=== PATIENT | female | born 1965 | race Caucasian/White ===

== ENCOUNTER 2016-10-09 09:04 | Emergency (ER) | payer MEDICARE | END 2016-10-09 09:50 | disposition home or self-care (01) | LOC: ER 09:04 | DX: L91.8 Other hypertrophic disorders of the skin (principal); Z86.711 Personal history of pulmonary embolism; I10 Essential (primary) hypertension; Z98.51 Tubal ligation status; Z88.1 Allergy status to other antibiotic agents; Z88.2 Allergy status to sulfonamides; Z79.899 Other long term (current) drug therapy; Z79.02 Long term (current) use of antithrombotics/antiplatelets; Z79.82 Long term (current) use of aspirin | CPT/HCPCS: 99282 ==

== ENCOUNTER 2016-10-18 14:45 | Emergency (ER) | payer MEDICARE ==
[2016-10-18 15:30] LABS: BASO % 0.7 % (0.1-1.2); EOS # 0.1 10_X3_uL (0.0-0.4); EOS % 2.3 % (0.7-5.8); GRAN # 3.9 10_X3_uL (1.6-6.1); GRAN % 65.5 % (34.0-71.1); HEMOGLOBIN 12.9 g/dL (11.2-15.7); LYMPH # 1.5 10_X3_uL (1.2-3.7); LYMPH % 24.9 % (19.3-51.7); MEAN CORPUSCULAR HEMOGLOBIN 32.5 pg (27.0-33.0); MEAN CORPUSCULAR HGB CONC 33.1 g/dL (32.0-36.0); MEAN CORPUSCULAR VOLUME 98.2 fL (79-95); MEAN PLATELET VOLUME 11.1 fl (7.5-11.5); MONO # 0.4 10_X3_uL (0.2-0.9); MONO % 6.6 % (4.7-12.5); PLATELET COUNT 206 x10_3/uL (182-369); RED BLOOD COUNT 3.97 x10_6/uL (3.9-5.2); RED CELL DISTRIBUTION WIDTH 13.4 % (11.7-14.4)
[2016-10-18 15:46] LABS: ALBUMIN 4.6 gm/dL (3.4-5.0); ALKALINE PHOSPHATASE 111 U/L (50-136); ALT/SGPT 23 U/L (3.5-33.9); AST/SGOT 18 U/L (7.04-26.96); BILIRUBIN,TOTAL 0.66 mg/dL (0.0-1.0); BLOOD UREA NITROGEN 11 mg/dL (7-18); CALCIUM 9.5 mg/dL (8.7-10.7); CARBON DIOXIDE 28 mmol/L (21-32); CREATINE KINASE 103 U/L (21-215); CREATININE 0.7 mg/dL (0.6-1.3); GLUCOSE,RANDOM 98 mg/dL (70-99); POTASSIUM 3.6 mmol/L (3.5-5.1); SODIUM 142 mmol/L (136-145); TOTAL PROTEIN 7.3 gm/dL (6.4-8.2)
== END 2016-10-18 16:00 | disposition home or self-care (01) ==
LOC: ER 14:45
PROVIDERS: Internal Medicine
DX: R11.2 Nausea with vomiting, unspecified (principal); I25.10 Atherosclerotic heart disease of native coronary artery without angina pectoris; Z95.1 Presence of aortocoronary bypass graft; Z79.82 Long term (current) use of aspirin; Z79.899 Other long term (current) drug therapy; Z79.02 Long term (current) use of antithrombotics/antiplatelets; Z88.2 Allergy status to sulfonamides; Z88.1 Allergy status to other antibiotic agents
CPT/HCPCS: 36415; 80053; 82550; 82553; 85025; 93005; 99283-25